=== PATIENT | male | born 2000 | race Two or more races ===

== ENCOUNTER 2023-03-24 18:55 | Emergency (ER) | payer SELFPAY ==
[~2023-03-24] VITALS: Ht 185.4 cm; Wt 77.6 kg
[2023-03-24 18:56] VITALS: BP 138/79; RESP 16; O2SAT 98
[2023-03-24 19:26] LABS: Basophils # (auto) 0 10 ^3/uL (0-0.2); Basophils % (auto) 0.3 % (0.0-2.0); Eosinophils # (auto) 0.1 10 ^3/uL (0-0.8); Hematocrit 47.8 % (41.0-53.0); Hemoglobin 16.1 g/dL (13.5-17.5); Lymphocytes # (auto) 2.4 10 ^3/uL (0.4-5.4); Mean Corpuscular Hemoglobin 28.9 pg (28.0-32.0); Mean Corpuscular Hgb Conc. 33.7 g/dL (32.0-36.0); Mean Corpuscular Volume 85.7 fL (80.0-100.0); Monocytes # (auto) 1.6 10 ^3/uL (0-1.3); Neutrophils % (auto) 70.7 % (37.0-80.0); Red Blood Cells 5.58 10^6/uL (4.5-5.90); Red Cell Distribution Width 13.7 % (11.8-14.3); White Blood Cell 14.2 10^3/uL (4.4-10.8)
[2023-03-24 19:48] LABS: Alanine Aminotransferase 27 U/L (7-40); Alkaline Phosphatase 76 U/L (46-116); Anion Gap 9 (5-15); Aspartate Aminotransferase 18 U/L (13-40); BUN/Creatinine Ratio 11.7 (10.0-20.0); Bilirubin, Total 0.6 mg/dL (0.2-1.0); Blood Urea Nitrogen 14 mg/dL (9-23); Carbon Dioxide 27 mmol/L (20-30); Chloride 102 mmol/L (98-107); Glucose 89 mg/dL (74-106); INR 1.1 (0.9-1.15); Partial Thromboplastin Time 30.9 SEC (24.5-34.5); Potassium 4.2 mmol/L (3.5-5.1); Prothrombin Time 11.5 sec (9.3-11.8); Sodium 138 mmol/L (136-145); Total Protein 7.4 g/dL (5.7-8.2)
[2023-03-24] MEDS ORDERED: ALBUTEROL MEDNEB 2.5 mg/3ml NEB NEB ONE (20:00)
[2023-03-24] MEDS ORDERED: IPRATROPIUM BROM 0.5 MG/2.5ML INH SOL NEB ONE (20:00)
[2023-03-24] MEDS ORDERED: DexAMETHasone SOD PHOS 10MG/1ML VIAL INJ IM ONE ×2 (20:00→21:30)
[2023-03-24 21:02] LABS: Amphetamine Screen, Urine Neg (NEGATIVE)
[2023-03-24 21:03] LABS: Barbiturate Scree,Urine Neg (NEGATIVE); Benzodiazephine Screen, Urine Neg (NEGATIVE); Cocaine Screen, Urine Neg (NEGATIVE); Opiate Scree,Urine Neg (NEGATIVE); Phencyclidine Screen, Urine Neg (NEGATIVE)
[2023-03-24 21:04] LABS: Cannabinoid Screen, Urine Neg (NEGATIVE)
[2023-03-24] MEDS ORDERED: cefTRIAXone SOD 1,000 MG VL IM ONE (21:30)
[2023-03-24] MEDS ORDERED: PRED20TA2 PO (21:31)
[2023-03-24] MEDS ORDERED: BENZ200C64 PO (21:31)
[2023-03-24] MEDS ORDERED: ALBUAER3 IN (21:31)
[2023-03-24] MEDS ORDERED: AZITTAB PO (21:31)
[2023-03-24 21:40] VITALS: PULSE 74
== END 2023-03-25 01:59 | disposition left against medical advice (07) ==
LOC: ER 18:55
DX: R07.89 Other chest pain (principal); J03.90 Acute tonsillitis, unspecified; J40 Bronchitis, not specified as acute or chronic; R55 Syncope and collapse; M25.512 Pain in left shoulder
CPT/HCPCS: 36415; 70450; 71045; 73030; 80053; 80307; 84484; 85025; 85610; 85730